=== PATIENT | male | born 1960 | race Caucasian/White ===

== ENCOUNTER 2016-09-16 11:34 | Emergency (ER) | payer OTHER ==
[~2016-09-16] VITALS: Ht 167.6 cm; Wt 93.0 kg
[~2016-09-16 11:34] MED LIST: ACET-2869 PO; AMOX-842 PO; AMOX1TAB8 PO; CLIN300C2 PO; COZ50 PO; ERGO2000 PO; FOLI1TAB19 PO; FURO-572 PO; HUM SUBQ; LAC PO; LANTUS SUBQ; LORA10TA19 PO; MELO15TA11 PO; TRAM50TA94 PO
[2016-09-16 11:40] VITALS: BP 151/90
--- NOTE | 2016-09-16 11:50 | NUR ---
PT PRESENTS TO ER W/C/O EYE IRRITATION. PT STATES HE ACCIDENTALLY SPRAYED WINDEX IN HIS EYES LAST NOC. HX DM, HTN. . PT STATES he has wound at rt buttocks;bruises redness noted. DENIES N/V/D; SKIN IS PINK/WARM/DRY; AAOX4 WITH EVEN AND STEADY GAIT; LUNGS CLEAR BL; HR EVEN AND REGULAR; PT DENIES ANY FEVER, CP, SOB, OR COUGH AT THIS TIME; PATIENT STATES PAIN OF 7/10 rt buttock AT THIS TIME; PATIENT POSITIONED FOR COMFORT; HOB ELEVATED; BEDRAILS UP X2; BED DOWN.
--- NOTE | 2016-09-16 12:15 | NUR ---
pt sitting on bed;no acute distress noted;will continue to monitor pt.
[2016-09-16] MEDS ORDERED: BACITRACIN OINT 500 UNITS/GM PKT TP ONE (12:35)
--- NOTE | 2016-09-16 12:37 | NUR ---
Patient discharged with v/s stable. Written and verbal after care instructions given and explained. Patient alert, oriented and verbalized understanding of instructions. Ambulatory with steady gait. All questions addressed prior to discharge. ID band removed. Patient advised to follow up with PMD. Rx of polysporinbenadryl,tylenol,and keflex given. Patient educated on indication of medication including possible reaction and side effects. Opportunity to ask questions provided and answered.
[2016-09-16 12:39] VITALS: BP 148/90
== END 2016-09-16 12:37 | disposition home or self-care (01) ==
LOC: MED 11:34
DX: T65.891A Toxic effect of other specified substances, accidental (unintentional), initial encounter (principal); T21.65XA Corrosion of second degree of buttock, initial encounter; T32.0 Corrosions involving less than 10% of body surface; E11.9 Type 2 diabetes mellitus without complications; I10 Essential (primary) hypertension; Y93.H9 Activity, other involving exterior property and land maintenance, building and construction; Y92.89 Other specified places as the place of occurrence of the external cause; Y99.8 Other external cause status
CPT/HCPCS: 99283

== ENCOUNTER 2016-10-25 19:09 | Emergency (ER) | payer OTHER ==
[~2016-10-25] VITALS: Ht 167.6 cm; Wt 90.7 kg
[2016-10-25 19:25] VITALS: BP 118/77
[2016-10-25] MEDS ORDERED: NACL 0.9% 1,000 ML IV ONE (20:00)
[2016-10-25 20:24] LABS: BASOPHILS # (AUTO) 0.1 K/uL (0.00-0.22); BASOPHILS % (AUTO) 1.6 % (0.0-2.0); EOSINOPHILS # (AUTO) 0.1 K/uL (0-0.4); EOSINOPHILS % (AUTO) 1.6 % (0.0-4.0); HEMATOCRIT 42.3 % (36-52); HEMOGLOBIN 13.9 g/dL (12.0-18.0); LYMPHOCYTES # (AUTO) 0.7 K/uL (2.0-11.5); MEAN CORPUSCULAR HEMOGLOBIN 31 pg (27-31); MEAN CORPUSCULAR HGB CONC 33 g/dL (33-37); MEAN CORPUSCULAR VOLUME 93 fL (80-94); MONOCYTES # (AUTO) 0.4 K/uL (0.8-1.0); MONOCYTES % (AUTO) 7.4 % (1.7-9.3); NEUTROPHILS # (AUTO) 4.3 K/uL (1.8-7.7); NEUTROPHILS % (AUTO) 77.4 % (42.2-75.2); PLATELET COUNT (AUTO) 126 K/uL (140-450); RED BLOOD CELL COUNT(AUTO) 4.57 MIL/uL (4.20-6.10); RED CELL DISTRIBUTION WIDTH 13.5 % (11.6-13.7); WHITE BLOOD COUNT (AUTO) 5.6 K/uL (4.8-10.8)
[2016-10-25 20:36] LABS: ANION GAP 11.3 (8-16); CALCIUM 8.2 mg/dL (8.5-10.1); CARBON DIOXIDE 24.8 mmol/L (21-32); CREATININE 1.1 mg/dL (0.7-1.3); POTASSIUM 4.1 mmol/L (3.5-5.1)
[2016-10-25 20:39] LABS: INR 1.2 (0.8-1.2); PARTIAL THROMBOPLASTIN TIME 24.7 secs (22-35.6); PROTHROMBIN TIME 11.9 secs (10.8-13.4)
[2016-10-25 20:42] LABS: ALBUMIN 3.5 g/dL (3.4-5.0); TOTAL BILIRUBIN 1.2 mg/dL (0.0-1.0); TOTAL PROTEIN, SERUM 7.1 g/dL (6.4-8.2)
[2016-10-25 21:26] VITALS: BP 129/76
== END 2016-10-25 21:26 | disposition home or self-care (01) ==
LOC: MED 19:09
DX: K59.00 Constipation, unspecified (principal); R10.12 Left upper quadrant pain; E11.9 Type 2 diabetes mellitus without complications; I10 Essential (primary) hypertension
CPT/HCPCS: 36415; 74022; 80053; 85025; 85610; 85730; 96360; 99285; J7030

== ENCOUNTER 2017-12-16 01:19 | Emergency (ER) | payer BC, OTHER ==
[~2017-12-16] VITALS: Ht 170.2 cm; Wt 90.3 kg
[~2017-12-16 01:19] MED LIST changes: -ACET-2869 PO; -AMOX-842 PO; -AMOX1TAB8 PO; -CLIN300C2 PO; -ERGO2000 PO; -FOLI1TAB19 PO; -FURO-572 PO; -LAC PO; -MELO15TA11 PO; +TRAM50TA1 PO; -TRAM50TA94 PO
[2017-12-16 01:27] VITALS: BP 177/103
--- NOTE | 2017-12-16 01:35 | NUR ---
PATIENT PRESENTS TO ED WITH C/O N/V AND HEADACHE PT SKIN IS PINK/WARM/DRY; AAOX4 WITH EVEN AND STEADY GAIT; LUNGS CLEAR BL; HR EVEN AND REGULAR; PT DENIES ANY FEVER, CP, SOB, OR COUGH AT THIS TIME; PATIENT STATES PAIN OF 10/10 AT THIS TIME; PATIENT POSITIONED FOR COMFORT; HOB ELEVATED; BEDRAILS UP X2; BED DOWN. ER MD MADE AWARE OF PT STATUS.
[2017-12-16] MEDS ORDERED: NACL 0.9% 1,000 ML IV ONE (02:45)
[2017-12-16] MEDS ORDERED: ONDANSETRON 4 MG/2 ML VIAL IVP ONE ×2 (02:45→04:45)
[2017-12-16] MEDS ORDERED: KETOROLAC 30 MG/ML VIAL IVP ONE (03:10)
[2017-12-16 03:34] LABS: HEMATOCRIT 43.2 % (36-52); HEMOGLOBIN 14.4 g/dL (12.0-18.0); MEAN CORPUSCULAR HEMOGLOBIN 32 pg (27-31); MEAN CORPUSCULAR VOLUME 97.4 fL (80-94); RED BLOOD CELL COUNT(AUTO) 4.43 MIL/uL (4.20-6.10); WHITE BLOOD COUNT (AUTO) 5.1 K/uL (4.8-10.8)
[2017-12-16 03:35] LABS: BASOPHILS # (AUTO) 0.1 K/uL (0.00-0.22); BASOPHILS % (AUTO) 2.4 % (0.0-2.0); EOSINOPHILS % (AUTO) 0.5 % (0.0-4.0); LYMPHOCYTES % (AUTO) 19.9 % (20.5-51.1); MEAN CORPUSCULAR HGB CONC 33 g/dL (33-37); MONOCYTES # (AUTO) 0.5 K/uL (0.8-1.0); MONOCYTES % (AUTO) 10.2 % (1.7-9.3); NEUTROPHILS # (AUTO) 3.5 K/uL (1.8-7.7); PLATELET COUNT (AUTO) 113 K/uL (140-450); RED CELL DISTRIBUTION WIDTH 13.9 % (11.6-13.7)
[2017-12-16 03:37] LABS: ANION GAP 14.3 (8-16); CARBON DIOXIDE 26.6 mmol/L (21-32); CREATININE 0.7 mg/dL (0.7-1.3); POTASSIUM 3.9 mmol/L (3.5-5.1)
[2017-12-16 03:54] LABS: ALBUMIN 3.3 g/dL (3.4-5.0); TOTAL BILIRUBIN 1.4 mg/dL (0.0-1.0)
--- NOTE | 2017-12-16 04:14 | NUR ---
PT RESTING IN BED, REPORTS 6/10 HEADACHE AFTER MEDS, REPORTS SLIGHT NAUSEA. VSS. ALL NEEDS MET.
[2017-12-16 04:42] VITALS: BP 160/84
--- NOTE | 2017-12-16 04:42 | NUR ---
Note suhaone in EDM - 12/16/17 at 0511 by DON Patient discharged with v/s stable. Written and verbal after care instructions given and explained. Patient alert, oriented and verbalized understanding of instructions. Ambulatory with steady gait. All questions addressed prior to discharge. ID band removed. Patient advised to follow up with PMD. Rx of AIYANA COOPER ODT given. Patient educated on indication of medication including possible reaction and side effects. Opportunity to ask questions provided and answered.
[2017-12-16] MEDS ORDERED: ACETAMINOPHEN 325 MG TAB PO ONE (04:45)
--- NOTE | 2017-12-16 05:11 | NUR ---
Patient discharged with v/s stable. Written and verbal after care instructions given and explained. Patient alert, oriented and verbalized understanding of instructions. Ambulatory with steady gait. All questions addressed prior to discharge. ID band removed. Patient advised to follow up with PMD. Rx of NAPROSYN, ZOFRAN ODT given. Patient educated on indication of medication including possible reaction and side effects. Opportunity to ask questions provided and answered.
== END 2017-12-16 05:11 | disposition home or self-care (01) ==
LOC: MED 01:19
DX: R51 Headache (principal); R11.2 Nausea with vomiting, unspecified; R10.10 Upper abdominal pain, unspecified; E11.9 Type 2 diabetes mellitus without complications; I10 Essential (primary) hypertension; Z79.4 Long term (current) use of insulin; Z79.899 Other long term (current) drug therapy
CPT/HCPCS: 36415; 70450; 80053; 82948; 83690; 85025; 96361; 96374; 96375; 99285; J1885; J2405; J7030

== ENCOUNTER 2018-07-03 17:57 | Emergency (ER) | payer BC ==
[~2018-07-03] VITALS: Ht 170.2 cm; Wt 92.5 kg
[2018-07-03 18:11] VITALS: BP 144/89
--- NOTE | 2018-07-03 18:58 | NUR ---
PATIENT PRESENTS TO ED WITH pt states, he got out of work early 2 to throat pain persistant. >2 months of throat pain, emesis every morning---adds he had an endoscopy 2 wks ago ; was told he was normal no drooling no muffled voice noted---denies recent injury ----adds he has not been able to eat due to pain and emesis, "feels very tired". . PT ; SKIN IS PINK/WARM/DRY; AAOX4 WITH EVEN AND STEADY GAIT; LUNGS CLEAR BL; HR EVEN AND REGULAR; PT DENIES ANY FEVER, CP, SOB, OR COUGH AT THIS TIME; PATIENT STATES PAIN OF 10/10 AT THIS TIME; VSS; PATIENT POSITIONED FOR COMFORT; HOB ELEVATED; BEDRAILS UP X2; BED DOWN. ER MD MADE AWARE OF PT STATUS.
--- NOTE | 2018-07-03 19:10 | NUR ---
REPORT RECIEVED FROM FRANCES MAS. TRANSFER OF CARE AT THIS TIME
--- NOTE | 2018-07-03 19:13 | NUR ---
Pt report given to FRANCES Garcia. Transfer of care at this time.
[2018-07-03] MEDS ORDERED: PANTOPRAZOLE 40 MG INJ VIAL IVP ONE (20:25)
[2018-07-03] MEDS ORDERED: NACL 0.9% 1,000 ML IV ONE (20:25)
[2018-07-03 20:52] LABS: BASOPHILS # (AUTO) 0.1 K/uL (0.00-0.22); BASOPHILS % (AUTO) 1.9 % (0.0-2.0); EOSINOPHILS # (AUTO) 0.1 K/uL (0-0.4); EOSINOPHILS % (AUTO) 1.9 % (0.0-4.0); HEMATOCRIT 43.5 % (36-52); HEMOGLOBIN 14.8 g/dL (12.0-18.0); LYMPHOCYTES # (AUTO) 0.9 K/uL (2.0-11.5); MEAN CORPUSCULAR HEMOGLOBIN 34 pg (27-31); MEAN CORPUSCULAR HGB CONC 34 g/dL (33-37); MEAN CORPUSCULAR VOLUME 99.3 fL (80-94); MONOCYTES # (AUTO) 0.5 K/uL (0.8-1.0); MONOCYTES % (AUTO) 14.3 % (1.7-9.3); NEUTROPHILS # (AUTO) 1.7 K/uL (1.8-7.7); NEUTROPHILS % (AUTO) 53.9 % (42.2-75.2); RED BLOOD CELL COUNT(AUTO) 4.38 MIL/uL (4.20-6.10); RED CELL DISTRIBUTION WIDTH 17.4 % (11.6-13.7); WHITE BLOOD COUNT (AUTO) 3.2 K/uL (4.8-10.8)
[2018-07-03 21:00] LABS: ANION GAP 16.4 (8-16); CARBON DIOXIDE 26.1 mmol/L (21-32); CREATININE 0.7 mg/dL (0.7-1.3); POTASSIUM 3.5 mmol/L (3.5-5.1)
[2018-07-03 21:06] LABS: ALBUMIN 3.3 g/dL (3.4-5.0); TOTAL BILIRUBIN 6.8 mg/dL (0.0-1.0)
[2018-07-03 21:10] LABS: PLATELET COUNT (AUTO) 59 K/uL (140-450)
[2018-07-03] MEDS ORDERED: NACL 0.9% 500 ML IV ONE (21:35)
--- NOTE | 2018-07-03 22:20 | NUR ---
Patient presented to facility under the influence of Alcohol. Patient is currently ambulatory with steady gait, able to walk unassisted. Positive gag reflex. Alert and oriented. Is not driving self for discharge out of facility.Patient discharged with v/s stable. Written and verbal after care instructions given and explained. Patient verbalized understanding. Ambulatory with steady gait. All questions addressed prior to discharge. Advised to follow up with PMD. IV removed, catheter intact and site benign. Applied folded 4x4 gauze and tape to stop bleeding.
[2018-07-03 22:24] VITALS: BP 158/93
== END 2018-07-03 22:20 | disposition home or self-care (01) ==
LOC: MED 17:57
DX: F10.129 Alcohol abuse with intoxication, unspecified (principal); R07.0 Pain in throat; E11.9 Type 2 diabetes mellitus without complications; K21.9 Gastro-esophageal reflux disease without esophagitis; I10 Essential (primary) hypertension; Z79.4 Long term (current) use of insulin; Z79.891 Long term (current) use of opiate analgesic; Z79.899 Other long term (current) drug therapy; Y90.8 Blood alcohol level of 240 mg/100 ml or more
CPT/HCPCS: 36415; 70360; 80053; 82948; 85025; 93005; 96361; 96374; 99284; C9113; G0482; Q0092; J7030

== ENCOUNTER 2019-04-25 09:00 | Emergency (ER) | payer BC ==
[~2019-04-25] VITALS: Ht 167.6 cm; Wt 90.7 kg
[~2019-04-25 09:00] MED LIST changes: -COZ50 PO; +LOSA50TA57 PO
[2019-04-25 09:21] VITALS: BP 123/78
--- NOTE | 2019-04-25 09:27 | NUR ---
FLU SWAB COLLECTED.
--- NOTE | 2019-04-25 09:27 | NUR ---
TRIAGE COMPLETE. VSS. RETURNED TO LOBBY AWAITNG BED IN ED.
[2019-04-25 10:10] LABS: BASOPHILS % (AUTO) 0.4 % (0.0-2.0); EOSINOPHILS # (AUTO) 0.1 K/uL (0-0.4); HEMATOCRIT 44.8 % (36-52); HEMOGLOBIN 15.2 g/dL (12.0-18.0); LYMPHOCYTES # (AUTO) 0.4 K/uL (2.0-11.5); LYMPHOCYTES % (AUTO) 8.7 % (20.5-51.1); MEAN CORPUSCULAR HEMOGLOBIN 36 pg (27-31); MEAN CORPUSCULAR HGB CONC 34 g/dL (33-37); MEAN CORPUSCULAR VOLUME 105.6 fL (80-94); MONOCYTES # (AUTO) 0.7 K/uL (0.8-1.0); MONOCYTES % (AUTO) 14.3 % (1.7-9.3); NEUTROPHILS # (AUTO) 3.8 K/uL (1.8-7.7); NEUTROPHILS % (AUTO) 75.6 % (42.2-75.2); PLATELET COUNT (AUTO) 61 K/uL (140-450); RED BLOOD CELL COUNT(AUTO) 4.24 MIL/uL (4.20-6.10); RED CELL DISTRIBUTION WIDTH 14.4 % (11.6-13.7)
[2019-04-25 10:17] LABS: ANION GAP 12.3 (8-16); CARBON DIOXIDE 27.1 mmol/L (21-32); CREATININE 0.7 mg/dL (0.7-1.3); POTASSIUM 4.4 mmol/L (3.5-5.1)
[2019-04-25 10:30] LABS: ALBUMIN 2.8 g/dL (3.4-5.0); TOTAL BILIRUBIN 4.4 mg/dL (0.0-1.0)
--- NOTE | 2019-04-25 11:13 | NUR ---
PT AMB TO BED 3.
[2019-04-25] MEDS ORDERED: ALBUTEROL SULFATE/IPRATROPIU 3 ML SOL IH ONE (11:40)
[2019-04-25] MEDS ORDERED: LEVOFLOXACIN 750 MG/D5W PREMIX 150 ML IV ONE (12:30)
[2019-04-25] MEDS ORDERED: NACL 0.9% 1,000 ML IV ONE (12:30)
--- NOTE | 2019-04-25 13:56 | NUR ---
Stable VSS To be admitted Awaiting bed on floor
[2019-04-25] MEDS ORDERED: ACETAMINOPHEN EXTRA STRENGTH 500 MG TAB PO ONE (15:20)
[2019-04-25] MEDS ORDERED: NACL 0.9% 2,000 ML IV ONE (16:00)
[2019-04-25 16:35] VITALS: BP 168/78
--- NOTE | 2019-04-25 16:37 | NUR ---
Stable VSS Pain free MD has spoken to at [facility] and they have accepted Report to Tel at [facility] and also to EMS Ambualted to exit
--- NOTE | 2019-04-26 12:50 | NUR ---
Late entry. Confirmed with RN that 0.9 NS IV started at 1611 and completed at 1700 and Levaquin began at 1244 and ended at 1415
== END 2019-04-25 16:37 | disposition short-term general hospital (02) ==
LOC: MED 09:00
DX: J20.9 Acute bronchitis, unspecified (principal); M86.172 Other acute osteomyelitis, left ankle and foot; R74.0 Nonspecific elevation of levels of transaminase and lactic acid dehydrogenase [LDH]; E11.9 Type 2 diabetes mellitus without complications; K21.9 Gastro-esophageal reflux disease without esophagitis; I11.0 Hypertensive heart disease with heart failure; Z79.899 Other long term (current) drug therapy
CPT/HCPCS: 36415; 71046; 73660; 80053; 83605; 84484; 85025; 87040; 87086; 87804; 94640; 96374; 99285; J7030; J7620; Q0092

== ENCOUNTER 2019-08-30 17:34 | Inpatient (IN) | payer BC, OTHER ==
[~2019-08-30] VITALS: Ht 167.6 cm; Wt 77.1 kg
--- NOTE | 2019-08-30 17:35 | NUR ---
Patient BIBA BLS, transferred to bed 6. RN evaluating patient at bedside.
[2019-08-30 17:40] VITALS: BP 144/79
--- NOTE | 2019-08-30 17:53 | NUR ---
PT BIBA C/O OF PAIN IN THE BACK RLQ OF THE ABD. PAIN STARTED THIS MORNING. PAIN IS LOCALIZED TO RLQ. MOVEMENT INCREASES THE PAIN. PT STATES HE PASSED OUT BECAUSE OF THE PAIN. HE FELL AND HIT THE RIGHT SIDE OF HIS HEAD. NO BRUSING OR SWELLING PRESENT FROM THE FALL ON HIS HEAD. NO BLEEDING. NO VISIBLE SIGNS OF HEAD TRAUMA PT IS A&OX4. PMHX: DM2, HTN, AND HYPERLIPIDEMIA NKA,NKDA
[2019-08-30] MEDS ORDERED: NACL 0.9% 1,000 ML IV SCH (18:04)
[2019-08-30] MEDS ORDERED: KETOROLAC 30 MG/ML VIAL IVP ONE (18:05)
[2019-08-30] MEDS ORDERED: MORPHINE SULFATE 4 MG/ML SYR IVP ONE (18:15)
--- NOTE | 2019-08-30 18:24 | NUR ---
LAB AT BEDSIDE
--- NOTE | 2019-08-30 18:30 | NUR ---
PT TAKEN TO RAD VIA WHEEL CHAIR
[2019-08-30 18:33] LABS: APPEARANCE,URINE CLEAR (CLEAR); BILIRUBIN,URINE 1+ (NEGATIVE); BLOOD, URINE TRACE-I (NEGATIVE); LEUKOCYTE ESTERASE ,URINE NEGATIVE (NEGATIVE); NITRITE, URINE NEGATIVE (NEGATIVE); UGLUCOSE 3+ (NEGATIVE)
[2019-08-30 18:34] LABS: EOSINOPHILS # (AUTO) 0.1 K/uL (0-0.4); EOSINOPHILS % (AUTO) 3.9 % (0.0-4.0); HEMATOCRIT 39.8 % (36-52); HEMOGLOBIN 13.7 g/dL (12.0-18.0); LYMPHOCYTES # (AUTO) 0.8 K/uL (2.0-11.5); LYMPHOCYTES % (AUTO) 21.4 % (20.5-51.1); MEAN CORPUSCULAR HEMOGLOBIN 36 pg (27-31); MEAN CORPUSCULAR HGB CONC 34 g/dL (33-37); MEAN CORPUSCULAR VOLUME 105.5 fL (80-94); MONOCYTES # (AUTO) 0.4 K/uL (0.8-1.0); MONOCYTES % (AUTO) 11.2 % (1.7-9.3); NEUTROPHILS # (AUTO) 2.2 K/uL (1.8-7.7); NEUTROPHILS % (AUTO) 62.5 % (42.2-75.2); PLATELET COUNT (AUTO) 75 K/uL (140-450); RED BLOOD CELL COUNT(AUTO) 3.78 MIL/uL (4.20-6.10); RED CELL DISTRIBUTION WIDTH 14.9 % (11.6-13.7); WHITE BLOOD COUNT (AUTO) 3.5 K/uL (4.8-10.8)
[2019-08-30 18:40] LABS: COLOR,URINE YELLOW (YELLOW)
--- NOTE | 2019-08-30 18:42 | NUR ---
PT RETURNED FROM RAD
[2019-08-30 18:50] LABS: ALBUMIN 2.8 g/dL (3.4-5.0); ANION GAP 12.5 (8-16); CARBON DIOXIDE 26.1 mmol/L (21-32); CREATININE 0.7 mg/dL (0.6-1.3); POTASSIUM 3.6 mmol/L (3.5-5.1); TOTAL BILIRUBIN 2.7 mg/dL (0.0-1.0)
[2019-08-30 18:55] LABS: RBC,URINE NONE SEEN /HPF (0-5); WBC,URINE NONE SEEN /HPF (0-5)
--- NOTE | 2019-08-30 19:00 | NUR ---
PT C/O HEADACHE AT THIS TIME. DR HAMILTON MADE AWARE
--- NOTE | 2019-08-30 19:11 | NUR ---
Pt report given to FRANCES CASTAÑEDA. Transfer of care at this time.
--- NOTE | 2019-08-30 19:15 | NUR ---
REPORT RECIEVED BY FRANCES MAZAUNLOADING CHECKER OF CARE AT THIS TIME.
--- NOTE | 2019-08-30 19:20 | NUR ---
PT STATES HIS PAIN IS STILL 10/10. BARTOLOD MADE AWARE.
[2019-08-30] MEDS ORDERED: MORPHINE SULFATE 2 MG/ML SYR ONE (19:57)
[2019-08-30] MEDS ORDERED: MORPHINE SULFATE 2 MG/ML SYR IVP ONE (20:00)
[2019-08-30] MEDS ORDERED: LACTULOSE 20 GM/30 ML UDC PO ONE (20:15)
--- NOTE | 2019-08-30 20:20 | NUR ---
PT RESTING IN BED. EQUAL CHEST RISE AND FALL. BED LOCKED AND IN LOWEST POSITION. CARDIAC MONTIOR IN PLACE.
[2019-08-30] MEDS ORDERED: DEXTROSE 50% 50 ML SYR IVP PRN (22:05)
[2019-08-30] MEDS ORDERED: ALBUTEROL 0.083% 2.5 MG/3 ML NEBU INH PRN (22:05)
[2019-08-30] MEDS ORDERED: traMADol 50 MG TAB PO PRN (22:05)
[2019-08-30] MEDS ORDERED: ALUMINUM HYD/MAG/SIMETHICONE 30 ML UDC PO PRN (22:05)
[2019-08-30] MEDS ORDERED: BISACODYL 10 MG SUPP RC PRN (22:05)
[2019-08-30] MEDS ORDERED: MAG SULF 2000 MG/WATER PREMIX 50 ML IV PRN (22:05)
[2019-08-30] MEDS ORDERED: diphenhydrAMINE 50 MG/ML VIAL IVP PRN (22:05)
[2019-08-30] MEDS ORDERED: LORazepam 2 MG/ML VIAL IVP PRN (22:05)
[2019-08-30] MEDS ORDERED: HYDROcodone/APAP 5/325 MG 1 TAB TAB PO PRN (22:05)
[2019-08-30] MEDS ORDERED: DOCUSATE SODIUM 250 MG GELCAP PO PRN (22:05)
[2019-08-30] MEDS ORDERED: MAGNESIUM OXIDE 400 MG TAB PO PRN (22:05)
[2019-08-30] MEDS ORDERED: guaiFENesin DM 200/20 MG-10 ML 10 ML UDC PO PRN (22:05)
[2019-08-30] MEDS ORDERED: IPRATROPIUM 0.02% 0.5 MG/2.5 ML NEBU INH PRN (22:05)
[2019-08-30] MEDS ORDERED: SODIUM PHOSPHATE 118 ML ENEM RC PRN (22:05)
[2019-08-30 22:20] VITALS: BP 147/91
--- NOTE | 2019-08-30 22:20 | NUR ---
Patient will be admitted to care of [facility]. Admited to TELE. Will go to room 107 A. Belongings list completed. Report to FRANCES ALLRED.
--- NOTE | 2019-08-30 22:20 | NUR ---
RECEIVED BEDSIDE REPORT FROM ED RN FOR PT'S CONTINUITY OF CARE. PT IS AAOX4, PRIMARILY PITCAIR[place] ISLANDER SPEAKING, UNDERSTANDS SOME YORUBA. AMBULATORY AT BASELINE BUT DT PAIN, NOT ABLE TO AMBULATE. 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 C/O RIGHT FLANK PAIN WHEN MOVING 8/10. EXPLAINED TO PT THE ASSISTANT NURSE MANAGER ROUTINE, PT VERBALIZED UNDERSTANDING. SAFETY MEASURES IN PLACE AND CALL LIGHT IS WITHIN REACH. WILL MONITOR PT THROUGHOUT THE SHIFT.
[2019-08-30] MEDS: ZOLPIDEM 5 MG TAB PO PRN (22:59)
[2019-08-30] MEDS: MORPHINE SULFATE 2 MG/ML SYR IVP PRN (22:59)
[2019-08-30] MEDS: INSULIN LANTUS 100 UNITS/ML 10 ML VIAL SUBQ SCH (23:25)
--- NOTE | 2019-08-30 23:25 | NUR ---
ADMINISTERED SCHEDULED MEDICATION ORDERED. PT C/O RIGHT FLANK PAIN 12/11, AND REQUESTED FOR SLEEP AID. ADMINISTERED MEDICATIONS ORDERED. PT TOLERATED IT WELL. PT TEACHING GIVEN, PT VERBALIZED UNDERSTANDING. PT MADE COMFORTABLE, AND INSTRUCTED TO USE CALL LIGHT WHEN NEEDED. WILL CONTINUE TO MONITOR PT.
[2019-08-31] VITALS: BP 148/86
--- NOTE | 2019-08-31 02:15 | NUR ---
MADE ROUNDS. PT ASLEEP WITH NO SIGNS OF DISTRESS OR DISCOMFORT. WILL CONTINUE TO MONITOR PT.
[2019-08-31] MEDS: cloNIDine 0.1 MG TAB PO PRN ×2 (03:42→20:46)
[2019-08-31] MEDS: MORPHINE SULFATE 2 MG/ML SYR IVP PRN ×5 (03:43→19:54)
--- NOTE | 2019-08-31 03:53 | NUR ---
PT C/O RIGHT FLANK PAIN UPON MOVING 11/10. VS CHECKED AND CHARTED. ELEVATED BP 163/92. ADMINISTERED PO PRN CLONIDINE ORDERED, AND PRN IVP PAIN MEDICATION ORDERED. PT MADE COMFORTABLE AND CALL LIGHT IS WITHIN REACH. WILL RE-ASSESS PT'S BP AND PAIN LEVEL.
[2019-08-31 04:00] VITALS: BP 163/92
[2019-08-31] MEDS: BLOOD GLUCOSE MONITORING 1 DEV DEV FS SCH ×4 (06:20→20:09)
[2019-08-31] MEDS: INSULIN LISPRO SLIDING SCALE 100 UNITS/ML VIAL SUBQ PRN ×3 (06:33→17:27)
--- NOTE | 2019-08-31 07:00 | NUR ---
RECEIVED REPORT FROM NIGHT NURSE FOR CONTINUITY OF CARE. PATIENT LAYING IN BED O2 2L VIA NC. PATIENT REQUESTING PAIN MEDICATION FOR RIGHT FLANK PAIN AND COMPLAINTS OF NAUSEA. WILL ADMINISTER MEDICATION ORDERED FOR PATIENTS REQUEST. BED IN LOW POSITION AND CALL LIGHT WITHIN REACH. WILL CONTINUE TO MONITOR PATIENT.
--- NOTE | 2019-08-31 07:00 | NUR ---
ENDORSED PT TO AM SHIFT RN FOR PT'S CONTINUITY OF CARE. PT C/O RIGHT FLANK PAIN AND NAUSEA. AM SHIFT RN WILL MEDICATE PT.
[2019-08-31 07:40] LABS: BASOPHILS % (AUTO) 0.9 % (0.0-2.0); EOSINOPHILS # (AUTO) 0.1 K/uL (0-0.4); EOSINOPHILS % (AUTO) 4.2 % (0.0-4.0); HEMATOCRIT 39.6 % (36-52); HEMOGLOBIN 13.7 g/dL (12.0-18.0); LYMPHOCYTES # (AUTO) 0.7 K/uL (2.0-11.5); LYMPHOCYTES % (AUTO) 20.4 % (20.5-51.1); MEAN CORPUSCULAR HEMOGLOBIN 37 pg (27-31); MEAN CORPUSCULAR HGB CONC 35 g/dL (33-37); MEAN CORPUSCULAR VOLUME 106.6 fL (80-94); MONOCYTES # (AUTO) 0.4 K/uL (0.8-1.0); MONOCYTES % (AUTO) 13.2 % (1.7-9.3); NEUTROPHILS % (AUTO) 61.3 % (42.2-75.2); PLATELET COUNT (AUTO) 66 K/uL (140-450); RED BLOOD CELL COUNT(AUTO) 3.71 MIL/uL (4.20-6.10); RED CELL DISTRIBUTION WIDTH 15.1 % (11.6-13.7); WHITE BLOOD COUNT (AUTO) 3.2 K/uL (4.8-10.8)
--- NOTE | 2019-08-31 07:41 | NUR ---
PAIN AND NAUSEA MEDICATION GIVEN PER PATIENT REQUEST. MEDICATION EDUCATION GIVEN AND PATIENT VERBALIZED UNDERSTANDING. REPOSITIONED PATIENT IN BED.
[2019-08-31] MEDS: ONDANSETRON 4 MG/2 ML VIAL IVP PRN ×3 (07:42→21:10)
[2019-08-31 08:00] VITALS: BP 169/90
[2019-08-31] MEDS: LOSARTAN 50 MG TAB PO SCH (08:17)
[2019-08-31] MEDS: LACTULOSE 20 GM/30 ML UDC PO SCH ×3 (08:17→17:24)
--- NOTE | 2019-08-31 08:21 | NUR ---
MORNING MEDICATION GIVEN TO PATIENT VIA PO. EDUCATION GIVEN ON MEDICATION AND PATIENT VERBALIZED UNDERSTANDING. CALL LIGHT IS WITHIN REACH AND BED IN LOW POSITION.
[2019-08-31 08:23] LABS: ALBUMIN 2.7 g/dL (3.4-5.0); ANION GAP 16.2 (8-16); CARBON DIOXIDE 24.4 mmol/L (21-32); CREATININE 0.6 mg/dL (0.6-1.3); MAGNESIUM 1.6 mg/dL (1.8-2.4); POTASSIUM 3.6 mmol/L (3.5-5.1); TOTAL BILIRUBIN 3.3 mg/dL (0.0-1.0)
--- NOTE | 2019-08-31 08:43 | NUR ---
PATIENT STATED PAIN IS TOLERABLE AT THIS TIME 06/10. HE CONTINUES TO LAY IN BED RESTING. 02 VIA NC @2L IN PLACE. WILL CONTINUE TO MONITOR PATIENT
[2019-08-31] MEDS ORDERED: INSULIN LANTUS 100 UNITS/ML 10 ML VIAL SUBQ SCH (09:00)
--- NOTE | 2019-08-31 09:29 | NUR ---
MAG LEVEL 1.6, PATIENT GIVEN MAGNESIUM OXIDE TAB PO PER MD ORDER
--- NOTE | 2019-08-31 09:42 | NUR ---
DR JOSHI BEDSIDE WITH PATIENT
--- NOTE | 2019-08-31 09:46 | NUR ---
PATIENT HAS BEEN SCREENED AND CATEGORIZED LOW NUTRITION RISK. PATIENT WILL BE SEEN WITHIN 7 DAYS OF ADMISSION. 09/06/[address]
[2019-08-31] MEDS ORDERED: MAG SULF 2000 MG/WATER PREMIX 50 ML IV SCH (09:48)
[2019-08-31] MEDS ORDERED: MAGNESIUM HYDROXIDE 2400 MG/30 ML UDC PO SCH (10:00)
--- NOTE | 2019-08-31 10:00 | NUR ---
BP REASSESSED, 148/88, PULSE 85 AFTER RECEIVING AM MEDICATIONS.
[2019-08-31] MEDS: BUMETANIDE 1 MG/4 ML VIAL IV SCH ×2 (10:20→21:15)
--- NOTE | 2019-08-31 10:34 | NUR ---
IV MAG HUNG, MOM, AND BUMEX GIVEN PER MD ORDER. PATIENT REQUESTING COMPLAINT OF PAIN, WILL MEDICATE
--- NOTE | 2019-08-31 10:49 | NUR ---
PAIN MEDICATION GIVE PER PATIENT REQUEST DUE TO PAIN 11/10 TO RIGHT FLANK. WILL REASSESS.
--- NOTE | 2019-08-31 11:21 | NUR ---
BLOOD SUGAR CHECK DONE, 236, PATIENT WILL BE COVERED BY SLIDING SCALE. TOLERATED WELL. BED IN LOW POSITION AND CALL LIGHT WITHIN REACH.
[2019-08-31 12:00] VITALS: BP 144/84
--- NOTE | 2019-08-31 12:20 | NUR ---
PATIENT RECIEVED 4UNITS INSULIN COVERAGE VIA SLIDING SCALE IN ABDOMEN. PO LACTOLOSE GIVEN, TOLERATED WELL. PATIENT EDUCATED ON MEDICATION AND VERBALIZED UNDERSTANDING. PATIENT IS EATING LUNCH NOW. 02 VIA NC @2L IS IN PLACE. NO S/S OF DISTRESS AT THIS TIME. WILL CONTINUE TO MONITOR.
--- NOTE | 2019-08-31 13:20 | NUR ---
PATIENT ASSISTED FROM BEDSIDE COMMODE BACK INTO BED, SMALL LOOSE BM NOTED. PATIENT WEAK DURING TRANSFER WITH UNSTEADY GATE. BED IN LOW POSITION, CALL LIGHT WITHIN REACH. O2 VIA 2L NC IN PLACE. NO S/S OF RESP DISTRESS
--- NOTE | 2019-08-31 15:05 | NUR ---
PATIENT ESCORTED TO AND FROM THE BATHROOM TO HAVE A BM. LOOSE STOOLS NOTED. PATIENT REQUESTED PRN PAIN MEDICATION FOR RIGHT FLANK PAIN. MEDICATION GIVEN. O2 AT 2L VIA NC IN PLACE. BED IN LOW POSITION AND CALL LIGHT WITHIN REACH.
[2019-08-31 16:00] VITALS: BP 133/72
--- NOTE | 2019-08-31 16:04 | NUR ---
PATIENT ESCORTED TO AND FROM THE RESTROOM TO HAVE A BM, LOOSE STOOLS NOTED. PRN ZOFRAN IVPUSH GIVEN FOR NAUSEA. WILL CONTINUE TO MONITOR PATIENT. BLOOD GLUCOSE CHECK DONE, 257. COVERAGE WILL BE GIVEN PER ORDER. BED IN LOW POSITION, CALL LIGHT WITHIN REACH
[2019-08-31] MEDS: INSULIN LANTUS 100 UNITS/ML 10 ML VIAL SUBQ SCH (17:26)
--- NOTE | 2019-08-31 17:43 | NUR ---
PATIENT RECEIVED INSULIN LANTUS 10UNITS PER ORDER AND HUMALOG FOR BLOOD SUGAR COVERAGE OF 257. TOLERATED WELL. EDUCATED ON MEDICATION AND PATIENT VERBALIZED UNDERSTANDING. CURRENTLY SITTING ON BED WITH DINNER ON TRAY. WILL CONTINUE TO MONITOR.
--- NOTE | 2019-08-31 19:03 | NUR ---
PATIENT IN STABLE CONDITION. SLEEPING AT THIS TIME. BED IN LOW POSITION AND CALL LIGHT WITHIN REACH. SALINE LOCK INTAC, O2 VIA NC @2L IN PLACE. WILL ENDORSE TO NIGHT NURSE FOR CONTINUITY OF CARE.
--- NOTE | 2019-08-31 19:05 | NUR ---
RECEIVED REPORT FORM TERA DANIELS DAYSHIFT NURSE AT BEDSIDE FOR CONTINUITY OF CARE, PT IN STABLE CONDITION.
--- NOTE | 2019-08-31 20:11 | NUR ---
PT IN BED AOX4 CROATIAN AND URUGUAYAN SPEAKING, HE HAS C/O OF SEVERE 8/10 PAIN ON RIGHT FLANK. PT GIVEN PRN IVP MORPHINE. IV SITE ON RIGHT WRIST INTACT, ASYMPTOMATIC AND FLUSHED PATENT.V/S FOLLOWS; T 98.2 P 84 R 18 B/P 170/90 02 96% ON 2 LITERS N/C. ALL FALLS PROTOCOL IN PLACE.
--- NOTE | 2019-08-31 20:20 | NUR ---
PT GIVEN HYGIENE SUPPLIES REQUESTED, PT FINGERSTICK IS 159, HE DECLINES TH E HUMALOG COVERAGE AT THIS TIME.
[2019-08-31] MEDS: ZOLPIDEM 5 MG TAB PO PRN (20:47)
--- NOTE | 2019-08-31 21:00 | NUR ---
PT WAS GIVEN PRN CATAPRES AND FOR HTN AND AMBIEN PER REQUEST FOR SLEEPING. WILL REASSESS EFFECT LATER.
--- NOTE | 2019-08-31 21:20 | NUR ---
PT WAS SITTING AT THE EDGE OF THE BED AND WAS GAGING. PT SAID THAT HE HAD THROWN UP THE PILLS THAT WERE GIVEN TO HIM CATAPRES AND AMBIEN. PT WAS GIVEN ZOSYN IVP FOR NAUSEA WELL ORDERED BUMEX AND ALBUMEN IV. EDUCATION REGARDING MEDICATION AND SIDE EFFECTS PROVIDED. PT ACKNOWLEDGED UNDERSTANDING.
[2019-08-31] MEDS: ALBUMIN HUMAN 25% 100 ML IV SCH (21:32)
--- NOTE | 2019-08-31 22:30 | NUR ---
PT IN BED AWAKE SITTING UP IN BED WATCHING TV WITH N/C RUNNING AT 2 LITERS. NO S/S OF PAIN OR DISTRESS NOTED. ALL FALLS PRECAUTIONS IN PLACE.
[2019-09-01] VITALS: BP 140/90
--- NOTE | 2019-09-01 00:30 | NUR ---
PT IN BED RESTING WITH EYES CLOSED N/C IN PLACE WELL 18G RIGHT WRIST IV SITE INTACT AND SALINE LOCKED. V/S FOLLOWS; T 98.2 P 83 R 16 B/P 140/90 02 95% ON 2 LITERS VIA N/C. ALL FALLS PRECAUTIONS IN PLACE.
--- NOTE | 2019-09-01 02:30 | NUR ---
P[T IN BED ASLEEP NO S/S OF PAIN OR DISTRESS NOTED. N/C IN PLACE AND RUNNING AT 2 LITERS. NO S/S OF PAIN OR DISTRESS NOTED. ALL FALLS PRECAUTIONS IN PLACE.
--- NOTE | 2019-09-01 03:15 | NUR ---
RECEIVED PT ON BED, AAOX4, COMPLAINING OF RT RIB PAIN, WILL MEDICATE PRN, IV LINE SALINE LOCK, NO N/V NOTED AT THIS TIME, DENIES ANY SOB, SAFETY MEASURES IN PLACE, CALL LIGHT WITHIN REACH.
--- NOTE | 2019-09-01 03:15 | NUR ---
REPORT GIVEN TO JB CHARGE NURSE DUE TO CHANGE OF ASSIGNMENT.
[2019-09-01] MEDS: MORPHINE SULFATE 2 MG/ML SYR IVP PRN ×4 (03:25→21:23)
--- NOTE | 2019-09-01 04:32 | NUR ---
ROUNDS MADE, SEEN PT SLEEPING, NO SIGNS OF DISTRESS, MONITORED CLOSELY.
[2019-09-01] MEDS: INSULIN LISPRO SLIDING SCALE 100 UNITS/ML VIAL SUBQ PRN ×3 (05:54→16:25)
--- NOTE | 2019-09-01 06:00 | NUR ---
BLOOD SUGAR CHECKED WITH 194 RESULT, 2 UNITS RISS ADMINISTERED, RT RIB PAIN ONLY ON MOVEMENT, MONITORED CLOSELY.
[2019-09-01] MEDS: BLOOD GLUCOSE MONITORING 1 DEV DEV FS SCH ×4 (06:30→21:00)
[2019-09-01 07:38] LABS: BASOPHILS % (AUTO) 0.9 % (0.0-2.0); EOSINOPHILS # (AUTO) 0.1 K/uL (0-0.4); HEMATOCRIT 39.7 % (36-52); HEMOGLOBIN 13.6 g/dL (12.0-18.0); LYMPHOCYTES # (AUTO) 0.6 K/uL (2.0-11.5); LYMPHOCYTES % (AUTO) 16.9 % (20.5-51.1); MEAN CORPUSCULAR HEMOGLOBIN 37 pg (27-31); MEAN CORPUSCULAR HGB CONC 34 g/dL (33-37); MEAN CORPUSCULAR VOLUME 106.7 fL (80-94); MONOCYTES # (AUTO) 0.4 K/uL (0.8-1.0); MONOCYTES % (AUTO) 11.5 % (1.7-9.3); NEUTROPHILS # (AUTO) 2.5 K/uL (1.8-7.7); NEUTROPHILS % (AUTO) 68.7 % (42.2-75.2); PLATELET COUNT (AUTO) 61 K/uL (140-450); RED BLOOD CELL COUNT(AUTO) 3.72 MIL/uL (4.20-6.10); RED CELL DISTRIBUTION WIDTH 15.1 % (11.6-13.7); WHITE BLOOD COUNT (AUTO) 3.6 K/uL (4.8-10.8)
[2019-09-01 07:41] LABS: ALBUMIN 2.9 g/dL (3.4-5.0); ANION GAP 12.9 (8-16); CARBON DIOXIDE 28.5 mmol/L (21-32); CREATININE 0.7 mg/dL (0.6-1.3); POTASSIUM 3.4 mmol/L (3.5-5.1); TOTAL BILIRUBIN 4.2 mg/dL (0.0-1.0)
--- NOTE | 2019-09-01 07:48 | NUR ---
PT SLEEPING, NO SIGNS OF DISTRESS, REPORT GIVEN TO FRANCES ANTOINE FOR CONTINUITY OF CARE.
--- NOTE | 2019-09-01 07:50 | NUR ---
RECEIVED REPORT FROM NIGHT NURSE JB, PT IS SLEEPING AND ON 2LPM O2 VIA NC,SKIN IS INTACT, IV SITES ON RIGHT WRIST G18 SALINE LOCK., NO DISTRESS NOTED, SAFETY MEASURES IN PLACE, CALL LIGHT WITHIN REACH, WILL CONTINUE TO MONITOR.
[2019-09-01 08:00] VITALS: BP 101/52
[2019-09-01] MEDS: LOSARTAN 50 MG TAB PO SCH (09:14)
[2019-09-01] MEDS: LACTULOSE 20 GM/30 ML UDC PO SCH ×3 (09:15→17:12)
[2019-09-01] MEDS: BUMETANIDE 1 MG/4 ML VIAL IV SCH ×2 (09:15→21:12)
[2019-09-01] MEDS: ALBUMIN HUMAN 25% 100 ML IV SCH (09:16)
--- NOTE | 2019-09-01 09:30 | NUR ---
MEDICATIONS DUE GIVEN AND CHECK VITAL SIGNS PRIOR TO MEDICATION.BP: 133/74 [place] 85. PT COMPLAINS OF RIGHT FLANK PAIN OF 10/10. PAIN MEDICATIONS GIVEN AND WILL REASSESS AFTER. SAFETY MEASURES IN PLACE, CALL LIGHT WITH IN REACH.WILL CONTINUE TO MONITOR
[2019-09-01] MEDS ORDERED: POTASSIUM CHLORIDE 10 MEQ TABER PO SCH (11:00)
--- NOTE | 2019-09-01 11:30 | NUR ---
PT WAS ON NPO AT THIS TIME UNTIL US OF THE ABDOMEN IS DONE. PT VERBALIZES UNDERSTANDING. WILL CONTINUE TO MONITOR.
[2019-09-01] MEDS: CIPROFLOXACIN 250 MG TAB PO SCH ×2 (12:36→21:12)
[2019-09-01] MEDS: metroNIDAZOLE 500 MG/NS PREMIX 100 ML IV SCH ×2 (13:25→21:11)
--- NOTE | 2019-09-01 14:00 | NUR ---
PT HAD AN US OF THE ABDOMEN PER PHILLIP NIEVES ORDER TO R/O CHOLECYSTITIS, PT IS STABLE
[2019-09-01 16:00] VITALS: BP 153/82
[2019-09-01] MEDS: INSULIN LANTUS 100 UNITS/ML 10 ML VIAL SUBQ SCH (17:13)
--- NOTE | 2019-09-01 19:10 | NUR ---
ENDORSED PT TO NIGHT NURSE FOR CONTINUITY OF CARE. PT IS STABLE
--- NOTE | 2019-09-01 19:11 | NUR ---
RECEIVED REPORT FROM AM SHIFT, FRANCES ANTOINE, PT IS SLEEPING, SKIN IS INTACT, IV SITE ON RIGHT WRIST G18 SALINE LOCK., NO DISTRESS NOTED, SAFETY MEASURES IN PLACE, CALL LIGHT WITHIN REACH, WILL CONTINUE TO MONITOR.
--- NOTE | 2019-09-01 21:00 | NUR ---
BLOOD SUGAR 180 MG/DL PATIENT REFUSED TO BE GIVEN HUMALOG 2 UNITS. EXPLAINED THE RISKS AND BENEFITS. PT SAID HE WILL NOT BE EATING SNACK AT NIGHT AND THAT IT OK NOT TO BE GIVEN 2 UNITS. BUT EXPLAINED TO HIM THAT WE HAVE TO CONTROL HIS SUGAR LEVELS CONSISTENTLY BY GIVING THE HUMALOG. PT REFUSED
[2019-09-02] VITALS: BP 151/82
--- NOTE | 2019-09-02 00:12 | NUR ---
CHECKED ON PATIENT; ABLE TO ASSIST TO BATHROOM WITH STEADY GAIT. W/ LEFT FOOT 1ST AND 5TH TOE OLD AMPUTATION NOTED
--- NOTE | 2019-09-02 02:30 | NUR ---
PATIENT TRYING TO SLEEP BUT DISTURBED BY THE SNORE OF THE OTHER PATIENT ROOMMATE
[2019-09-02] MEDS: BLOOD GLUCOSE MONITORING 1 DEV DEV FS SCH ×4 (05:30→21:24)
[2019-09-02] MEDS: metroNIDAZOLE 500 MG/NS PREMIX 100 ML IV SCH ×3 (05:45→22:07)
[2019-09-02 06:56] LABS: BASOPHILS # (AUTO) 0.1 K/uL (0.00-0.22); BASOPHILS % (AUTO) 1.2 % (0.0-2.0); EOSINOPHILS # (AUTO) 0.1 K/uL (0-0.4); EOSINOPHILS % (AUTO) 2.5 % (0.0-4.0); HEMATOCRIT 41.6 % (36-52); HEMOGLOBIN 14.2 g/dL (12.0-18.0); LYMPHOCYTES # (AUTO) 0.7 K/uL (2.0-11.5); LYMPHOCYTES % (AUTO) 16.5 % (20.5-51.1); MEAN CORPUSCULAR HEMOGLOBIN 36 pg (27-31); MEAN CORPUSCULAR HGB CONC 34 g/dL (33-37); MEAN CORPUSCULAR VOLUME 106.4 fL (80-94); MONOCYTES # (AUTO) 0.6 K/uL (0.8-1.0); MONOCYTES % (AUTO) 13.5 % (1.7-9.3); NEUTROPHILS % (AUTO) 66.3 % (42.2-75.2); PLATELET COUNT (AUTO) 74 K/uL (140-450); RED BLOOD CELL COUNT(AUTO) 3.91 MIL/uL (4.20-6.10); RED CELL DISTRIBUTION WIDTH 14.9 % (11.6-13.7); WHITE BLOOD COUNT (AUTO) 4.5 K/uL (4.8-10.8)
--- NOTE | 2019-09-02 06:56 | NUR ---
PATIENT AWAKE, ALERT ORIENTED PT IN STABLE CONDITION. WILL ENDORSE TO NEXT NURSE
[2019-09-02 07:16] LABS: ALBUMIN 3.2 g/dL (3.4-5.0); ANION GAP 13.7 (8-16); CARBON DIOXIDE 27.4 mmol/L (21-32); CREATININE 0.8 mg/dL (0.6-1.3); POTASSIUM 3.1 mmol/L (3.5-5.1); TOTAL BILIRUBIN 4.5 mg/dL (0.0-1.0)
--- NOTE | 2019-09-02 07:17 | NUR ---
RECEIVED BEDSIDE REPORT FROM WATERPROOF BAG CUTTING MACHINE OPERATOR NURSE JOSELYN FOR CONTINUITY OF CARE. PT IS AWAKE AND RESTING ON BED AT THIS TIME. PT IS AAOX4, SPEAKS [place] LEONE[place] AND UNDERSTAND SAMI. RESPIRATION EVEN AND UNLABORED ON RA. DENIED PAIN, SOB AND DIZZINESS. NO SIGNS OF DISTRESS NOTED. IV ON R WRIST 18G, CLEAN AND INTACT, SALINE LOCK AT THIS TIME. HALLUX TOE AND FIFTH TOE AMPUTATED ON L LEG NOTED, SKIN CLEAN AND DRY. PT IS CONTINENT AND ABLE TO USE COMMODE BY BEDSIDE. SAFETY MEASURES IN PLACE. BED IN LOW POSITION AND CALL LIGHT WITHIN REACH. INSTRUCTED PT TO USE THE CALL LIGHT FOR ANY ASSISTANCE AND PT WAS AWARE.
[2019-09-02] MEDS: INSULIN LISPRO SLIDING SCALE 100 UNITS/ML VIAL SUBQ PRN ×3 (07:19→21:26)
[2019-09-02 08:00] VITALS: BP 138/79
[2019-09-02] MEDS: LACTULOSE 20 GM/30 ML UDC PO SCH ×3 (09:06→17:55)
[2019-09-02] MEDS: BUMETANIDE 1 MG/4 ML VIAL IV SCH ×2 (09:07→22:07)
[2019-09-02] MEDS: CIPROFLOXACIN 250 MG TAB PO SCH ×2 (09:07→20:11)
[2019-09-02] MEDS: MORPHINE SULFATE 2 MG/ML SYR IVP PRN ×3 (09:08→18:04)
--- NOTE | 2019-09-02 09:09 | NUR ---
RECEIVED VERBAL ORDERS FROM DR KRAFT THAT START IVF D5NS AT 70 ML/HR AND NPO EXCEPT MED. REPEATED AND CONFIRMED WITH MD. POSTED SIGN ON DOOR.
[2019-09-02] MEDS: LOSARTAN 50 MG TAB PO SCH (09:17)
--- NOTE | 2019-09-02 09:17 | NUR ---
CHECKED BP AND RECEIVED 140/85 PULSE 86. PT COMPLAINED OF 8/10 R FLANK PAIN. ADMINISTERED SCHEDULED MEDS AND PRN MORPHINE FOR PAIN, MEDS EDUCATION PROVIDED, PT TOLERATED PO MEDS WELL. EXPLAINED TO PT THAT HE HAS TO NOTHING BY MOUTH PER MD ORDER. PT WAS AWARE. PT IS RESTING ON BED AT THIS TIME. NO SIGNS OF DISTRESS NOTED. SAFETY MEASURES IN PLACE.
[2019-09-02] MEDS ORDERED: DEXT 5% /NACL 0.9% 1,000 ML IV SCH (09:25)
[2019-09-02] MEDS: POTASSIUM CHLORIDE 10 MEQ TABER PO PRN (09:36)
--- NOTE | 2019-09-02 09:36 | NUR ---
STARTED IVF D5NS AT 70 ML/HR AND ADMINISTERED 40 MEQ KDUR PO, PT TOLERATED MEDS WELL. PT IS RESTING ON BED AT THIS TIME. STATED THAT PAIN IS SLIGHTLY IMPROVED. NO SIGNS OF DISTRESS NOTED. SAFETY MEASURES IN PLACE.
--- NOTE | 2019-09-02 11:33 | NUR ---
CHECKED BLOOD GLUCOSE AND RECEIVED 274, NO INSULIN GIVEN DUE TO PATIENT IS NPO AT THIS TIME. PT AWAKE AND RESTING ON BED. STATED PAIN IS 2/10 WITHIN HIS TOLERABLE LIMIT. NO SIGNS OF DISTRESS NOTED. EXPLAINED TO PT THAT SINCE HE ATE A LITTLE BREAKFAST, HIDA SCAN WILL TAKE PLACE IN THE AFTERNOON AROUND 1330. PT WAS AWARE. SAFETY MEASURES IN PLACE. BED IN LOW POSITION AND CALL LIGHT WITHIN REACH.
--- NOTE | 2019-09-02 12:51 | NUR ---
ADMINISTERED SCHEDULED MEDS PER MD ORDER, MEDS EDUCATION PROVIDED, PT TOOK MED WITH SIP OF WATER, PT COMPLAINED OF DRY MOUTH, PROVIDED A CUP OF ICE CHIPS. EXPLAINED TO PT THAT HE HAS TO BE NOTHING BY MOUTH FOR THE HIDA SCAN AND PT UNDERSTOOD. PT AWAKE AND WATCHING TV AT THIS TIME. NO SIGNS OF ACUTE DISTRESS NOTE. SAFETY MEASURES IN PLACE.
--- NOTE | 2019-09-02 12:55 | NUR ---
RIP FROM [place] IS TALKING TO PT AT BEDSIDE. NO SIGNS OF ACUTE DISTRESS NOTED.
--- NOTE | 2019-09-02 13:40 | NUR ---
PT IS OFF UNIT TO HIDA SCAN. PT IS IN STABLE CONDITION. CHANGED ALL LINEN AND PILLOW CASES.
--- NOTE | 2019-09-02 13:52 | NUR ---
RECEIVED CALL FROM RIP ZACARIAS THAT HIDA SCAN CANCELLED AND PROCEDURE HAS NOT START. HE WILL BRING PT BACK NOW.
--- NOTE | 2019-09-02 14:00 | NUR ---
PT CAME BACK TO THE UNIT. NO SIGNS OF DISTRESS NOTED.
--- NOTE | 2019-09-02 14:11 | NUR ---
PT COMPLAINED OF 9/10 R FLANK PAIN, MEDICATED WITH PRN MORPHINE FOR PAIN, MED EDUCATION PROVIDED, PT VERBALIZED UNDERSTANDING. EXPLAINED TO PT THAT NPO IS CANCELLED AND PROVIDED ICE WATER. PT IS RESTING ON BED AT THIS TIME. NO SIGNS OF DISTRESS NOTED. SAFETY MEASURES IN PLACE.
--- NOTE | 2019-09-02 14:13 | NUR ---
FURNITURE REPRODUCER NOTE: Basic Screen: Yes High Risk DC Screen Bivins: YOVANNY JUSTICE Home Relationship: BROTHER Pre-Admission Living Arrangements: Lives with Other Prior ADL Independent Current Home Health Name/Tel: N/A Current DME/02 Name/Tel: N/A Current Hospice Name/Tel: N/A Current Dialysis Name/Tel: N/A Healthcare Decision Maker: Patient Advance Directive No Physician Orders for Life Sustaining Treatment Form No Patient/Family Have Educational Needs No Discipline: Case Mgt/Social Svcs Tentative Discharge Plan/Destination: No Needs Identified Will require assistance post discharge: No Referred to Housekeeping Manager: No Tentative Discharge Plan Summary: PATIENT IS A 59-YEAR-OLD FEMALE ADMITTED FOR HEPATIC ENCELEPATHY. PATIENT HAS PMHX OF HTN AND CIRRHOSIS. PATIENT WAS ADMITTED FROM HOME WHERE HE LIVES WITH HIS BROTHER. SW CONTACTED PATIENT'S BROTHER YOVANNY JUSTICE TO VERIFY DEMOGRAPHICS [phone]. PER YOVANNY, PATIENT IS INDEPENDENT WITH ALL ADLS AND REPORTS NO HISTORY OF SUBSTANCE ABUSE OR MENTAL HEALTH. TENTATIVE DISCHARGE PLAN IS FOR PATIENT TO RETURN HOME. NO FURTHER NEEDS IDENTIFIED. Signature: ALON DOUGHERTY Date: Sep 02, 2019 Time: 14:12
--- NOTE | 2019-09-02 15:40 | NUR ---
PT IS ASLEEP ON BED AND AROUSABLE TO VOICE. NO SIGNS OF DISTRESS NOTED. SAFETY MEASURES IN PLACE.
[2019-09-02 16:00] VITALS: BP 146/86
--- NOTE | 2019-09-02 16:27 | NUR ---
CHECKED BLOOD GLUCOSE AND RECEIVED 192, ADMINISTERED 2 UNITS OF HUMALOG, MED EDUCATION PROVIDED, AND PT SAID OK. PT TOLERATED SUBQ WELL. PT AWAKE AND WATCHING TV ON BED AT THIS TIME. NO SIGNS OF DISTRESS NOTED. SAFETY MEASURES IN PLACE.
[2019-09-02] MEDS: INSULIN LANTUS 100 UNITS/ML 10 ML VIAL SUBQ SCH (17:55)
--- NOTE | 2019-09-02 17:57 | NUR ---
CHECKED BLOOD GLUCOSE AND RECEIVED 185, ADMINISTERED SCHEDULED MEDS PER MD ORDER, MEDS EDUCATION PROVIDED, PT VERBALIZED UNDERSTANDING. PT IS EATING DINNER AT THIS TIME. NO SIGNS OF ACUTE DISTRESS NOTED. SAFETY MEASUERS IN PLACE.
--- NOTE | 2019-09-02 18:06 | NUR ---
ATTENDED TO CALL JUVENTINO T COMPLAINED OF 9/10 R FLANK PAIN, MEDICATED WITH PRN MORPHINE FOR PAIN, MED EDUCATION PROVIDED, PT VERBALIZED UNDERSTANDING. PT IS SITTING UP ON BED AND EATING DINNER AT THIS TIME. NO SIGNS OF DISTRESS NOTED. SAFETY MEASURES IN PLACE.
--- NOTE | 2019-09-02 19:07 | NUR ---
ENDORSED PT AT BEDSIDE TO SPRINKLER HELPER NURSE ROBERT FOR CONTINUITY OF CARE. PT AWAKE AND RESTING ON BED AT THIS TIME. NO SIGNS OF DISTRESS NOTED. PT IS IN STABLE CONDITION.
--- NOTE | 2019-09-02 19:08 | NUR ---
RECD. SITTING ON BED, AWAKE, A/OX4. RESPIRATION EVEN AND UNLABORED. IV SALINE LOCK AT THE RIGHT WRIST G18, PATENT AND INTACT. SAFETY MEASURES ENFORCED. BED IN THE LOWEST POSITION. CALL LIGHT IN REACH. PLAN OF CARE FOR THE SHIFT DISCUSSED. VERBALIZED UNDERSTANDING. DENIES PAIN 0/10.
--- NOTE | 2019-09-02 20:00 | NUR ---
Patient's Plan of Care was discussed and reviewed with CONVERSION WORKER: ROBERT JAFFE
[2019-09-02] MEDS: ZOLPIDEM 5 MG TAB PO PRN (21:42)
--- NOTE | 2019-09-02 21:42 | NUR ---
UNABLE TO SLEEP, MEDICATED WITH AMBIEN 5 MG. PO.
--- NOTE | 2019-09-02 22:45 | NUR ---
SLEEPING COMFORTABLY IN BED.
[2019-09-03] VITALS: BP 129/75
--- NOTE | 2019-09-03 | NUR ---
SLEEPING COMFORTABLY IN BED.
--- NOTE | 2019-09-03 04:00 | NUR ---
HAD MODERATE AMOUNT OF LOOSE BM.
[2019-09-03] MEDS: metroNIDAZOLE 500 MG/NS PREMIX 100 ML IV SCH ×2 (05:40→13:25)
[2019-09-03] MEDS: MORPHINE SULFATE 2 MG/ML SYR IVP PRN (05:41)
[2019-09-03 06:15] LABS: BASOPHILS # (AUTO) 0.1 K/uL (0.00-0.22); BASOPHILS % (AUTO) 1.5 % (0.0-2.0); EOSINOPHILS # (AUTO) 0.1 K/uL (0-0.4); HEMATOCRIT 41.1 % (36-52); HEMOGLOBIN 14.1 g/dL (12.0-18.0); LYMPHOCYTES # (AUTO) 0.7 K/uL (2.0-11.5); LYMPHOCYTES % (AUTO) 15.3 % (20.5-51.1); MEAN CORPUSCULAR HEMOGLOBIN 37 pg (27-31); MEAN CORPUSCULAR HGB CONC 34 g/dL (33-37); MEAN CORPUSCULAR VOLUME 106.9 fL (80-94); MONOCYTES # (AUTO) 0.7 K/uL (0.8-1.0); MONOCYTES % (AUTO) 14.7 % (1.7-9.3); NEUTROPHILS # (AUTO) 3.1 K/uL (1.8-7.7); NEUTROPHILS % (AUTO) 66.5 % (42.2-75.2); PLATELET COUNT (AUTO) 83 K/uL (140-450); RED BLOOD CELL COUNT(AUTO) 3.85 MIL/uL (4.20-6.10); WHITE BLOOD COUNT (AUTO) 4.6 K/uL (4.8-10.8)
[2019-09-03] MEDS: BLOOD GLUCOSE MONITORING 1 DEV DEV FS SCH ×2 (06:33→11:30)
[2019-09-03] MEDS: INSULIN LISPRO SLIDING SCALE 100 UNITS/ML VIAL SUBQ PRN ×2 (06:35→12:30)
--- NOTE | 2019-09-03 06:40 | NUR ---
SLEEPING COMFORTABLY IN BED, BS 204, MEDICATED WITH 4 UNITS REGULAR INSULIN. CONDITION REMAIN STABLE. WILL ENDORSE TO AM SHIFT NURSE FOR CONTINUITY O0F CARE.
[2019-09-03 06:48] LABS: CARBON DIOXIDE 28.3 mmol/L (21-32); CREATININE 0.9 mg/dL (0.6-1.3); POTASSIUM 3.3 mmol/L (3.5-5.1); TOTAL BILIRUBIN 4.2 mg/dL (0.0-1.0)
--- NOTE | 2019-09-03 07:10 | NUR ---
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 PT IS AWAKE AND RESTING ON BED AT THIS TIME. PT IS AAOX4, SPEAKS GRE[place] AND UNDERSTAND [place]. RESPIRATION EVEN AND UNLABORED ON RA. DENIED PAIN, SOB AND DIZZINESS. NO SIGNS OF DISTRESS NOTED. IV ON R WRIST 18G, CLEAN AND INTACT, SALINE LOCK AT THIS TIME. HALLUX TOE AND FIFTH TOE AMPUTATED ON L LEG NOTED, SKIN CLEAN AND DRY. PT IS CONTINENT AND ABLE TO USE COMMODE BY BEDSIDE. SAFETY MEASURES IN PLACE. BED IN LOW POSITION AND CALL LIGHT WITHIN REACH. INSTRUCTED PT TO USE THE CALL LIGHT FOR ANY ASSISTANCE AND PT WAS AWARE.
[2019-09-03 08:00] VITALS: BP 124/79
--- NOTE | 2019-09-03 09:15 | NUR ---
DR KRAFT IS ASSESSING PT AT BEDSIDE.
[2019-09-03] MEDS: CIPROFLOXACIN 250 MG TAB PO SCH (09:20)
[2019-09-03] MEDS: LACTULOSE 20 GM/30 ML UDC PO SCH ×2 (09:20→13:25)
[2019-09-03] MEDS: LOSARTAN 50 MG TAB PO SCH (09:23)
--- NOTE | 2019-09-03 09:26 | NUR ---
CHECKED BP AND RECEIVED 125/63 PULSE 86, ADMINISTERED SCHEDULED MEDS PER MD ORDER, MEDS EDUCATION PROVIDED, PT VERBALIZED UNDERSTANDING. PT IS AWAKE AND RESTING ON BED AT THIS TIME. NO SIGNS OF DISTRESS NOTED. SAFETY MEASURES IN PLACE.
[2019-09-03] MEDS ORDERED: LACT10SO1 PO (09:48)
--- NOTE | 2019-09-03 10:25 | NUR ---
NOTIFIED PATIENT THAT HE WILL DC HOME TODAY AND PT WAS AWARE. PER PT, HE WILL CALL HIS BROTHER TO PICK HIM UP AND WILL LET ME KNOW THE TIME OF [employer]PERVISOR.
--- NOTE | 2019-09-03 11:41 | NUR ---
CHECKED BG AND RECEIVED 297, WILL ADMINISTER COVERAGE AT LUNCH. PT IS RESTING ON BED AT THIS TIME. HE SAID "I MIGHT NEED TO TAKE THE TAXI HOME SINCE MY BROTHER IS AT WORK. I WILL LET YOU KNOW LATER AFTER LUNCH." PT IS RESTING ON BED. NO SIGNS OF DISTRESS NOTED. SAFETY MEASURES IN PLACE.
--- NOTE | 2019-09-03 12:10 | NUR ---
DISCHARGE PLANNING: THIS IS A 59 Y/O MALE PATIENT FROM HOME, WHO CAME IN DUE TO RIGHT SIDED LOW BACK PAIN. PAST MEDICAL HISTORY INCLUDE HTN, CIRRHOSIS AND ADDICTIONS. INITIAL DIAGNOSIS OF HEPATIC ENCEPHALOPATHY AND ALCOHOL USE. CURRENT LABS INCLUDE WBC 4.6, H/H 14.1/41.1, NA/K 137/3.3, BUN/CREA 18/0.9, ALB 3.0. ON CIPRO AND METRONIDAZOLE. NO CONSULTS. FOR DC TODAY TO HOME, NO NEEDS.
[2019-09-03] MEDS: POTASSIUM CHLORIDE 10 MEQ TABER PO PRN (12:29)
--- NOTE | 2019-09-03 12:32 | NUR ---
PT IS EATING LUNCH. ADMINISTERED 6 UNITS OF HUMALOG FOR BG 297 AND K-DUR 40 EMQ FOR LOW K FROM AM LAB, MEDS ED PROVIDED, PT VERBALIZED OK. NO SIGNS OF DISTRESS NOTED. SAFETY MEASURES IN PLACE.
--- NOTE | 2019-09-03 13:25 | NUR ---
ADMINISTERED MEDS PER MD ORDER, MEDS ED PROVIDED, PT VERBALIZED UNDERSTANDING. PER PT, NO ONE IS ABLE TO PICK HIM UP AND HE NEEDS TAXI AND WILL PAY FOR IT. WILL CALL TAXI AND PREPARE DC DOCUMENT.
--- NOTE | 2019-09-03 13:34 | NUR ---
CALLED CRISTIAN FULTON AT [phone] SPOKE WITH ADE TO ARRANGE A CRIMINAL PROFILER FROM HOSPITAL TO PT'S HOME. PER ADE, THE TAXI WILL ARRIVE BETWEEN NOW AND 45 MINS. INFORMED PT AND PT WAS AWARE.
--- NOTE | 2019-09-03 14:09 | NUR ---
RECEIVE CALL FROM [facility] AND TOLD OPERA SINGER TO WAIT FOR 10 MINS TO REMOVED IV AND WALK PATIENT OUT. TAXI LEFT AND TOLD TO CALL BACK WHEN PT IS READY AND BE OUTSIDE. CALLED CRISTIAN KRUSE AND SPOKE WITH ADE, PER ADE, TAXI WILL BE ARRIVE TO 5-45 MINS. DC PAPER READY.
--- NOTE | 2019-09-03 14:33 | NUR ---
PATIENT PACKED UP ALL HIS BELONGINGS AND AWAITING FOR TAXI TO ARRIVE FOR DC.
--- NOTE | 2019-09-03 15:15 | NUR ---
ESCORTED PT TO THE [facility] WITH WHEELCHAIR AND PT IS GOING TO DC NOW. PT IS IN STABLE CONDITION.
== END 2019-09-03 15:15 | disposition home or self-care (01) | DRG 280 ==
LOC: MED 17:34 → MTU 21:24
PROVIDERS: ADMIT Internal Medicine Pulmonary Disease; ATTEND Internal Medicine Pulmonary Disease
DX: K70.10 Alcoholic hepatitis without ascites (principal); K72.90 Hepatic failure, unspecified without coma; E44.0 Moderate protein-calorie malnutrition; E11.22 Type 2 diabetes mellitus with diabetic chronic kidney disease; K74.60 Unspecified cirrhosis of liver; E66.9 Obesity, unspecified; K80.80 Other cholelithiasis without obstruction; K59.00 Constipation, unspecified; N18.9 Chronic kidney disease, unspecified; I12.9 Hypertensive chronic kidney disease with stage 1 through stage 4 chronic kidney disease, or unspecified chronic kidney disease
CPT/HCPCS: 36415; 71250; 76700; 80053; 81001; 82140; 82550; 82948; 83690; 83735; 85025; 87081; 93005; 96361; 96374; 96376; 99285; J1815; J1885; J2270; J2405; J3475; J3490; J7030; P9046; Q0092